=== PATIENT | male | born 1985 | race American Indian/Alaskan Native ===

== ENCOUNTER 2024-11-10 09:15 | Emergency (ER) | payer SELFPAY ==
[2024-11-10] MEDS: Take Home: Amoxicillin/Clavulanate K 875-125 MG Tab, 2 Tab Pack PO ONE (09:43)
[2024-11-10] MEDS: Take Home: Acetaminophen/HYDROcodone 325-5 MG, 2 Tab Pack PO ONE (10:11)
== END 2024-11-10 10:22 | disposition home or self-care (01) ==
LOC: CC.ED 09:15
DX: K04.7 Periapical abscess without sinus (principal)
CPT/HCPCS: 99282; A9270; 99283